=== PATIENT | female | born 1970 | race Caucasian/White ===

== ENCOUNTER → 2018-12-08 11:46 | Outpatient (POV) | payer OTHER, SELFPAY ==
[2018-12-08 12:02] VITALS: BP 149/82; PULSE 77; RESP 18; O2SAT 98
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
== END ==
PROVIDERS: PCP Family Medicine; Visit Provider Clinical Nurse Specialist Family Health
DX: M79.7 Fibromyalgia (principal); M79.18 Myalgia, other site
CPT/HCPCS: 99202

== ENCOUNTER → 2019-01-13 11:33 | Outpatient (POV) | payer OTHER, SELFPAY ==
[2019-01-13 11:48] VITALS: BP 134/84; PULSE 77; RESP 18; O2SAT 98; BMI 20.4
--- NOTE | 2019-01-13 13:34 | HMH.PAINSOAP ---
[facility] Pain Management SOAP Note Subjective:: Is a very pleasant 48-year-old white female who presents today for to discuss her CBGs for her fibromyalgia. She is doing extremely well rating her pain a 2 out of 10 she states her anxiety is better as well. Patient overall doing well with no side effects. Patient understands that she needs to disclose utilizing CBD oil if she has a drug screen. Drug screen will not his positive for THC but however it may test positive for cannabinoids. Patient overall doing well we will follow-up with her in 6 months. ROS General: no recent weight change, no fever, no sleep disturbances Respiratory: no cough, no shortness of air, no recurring pulmonary infections Cardiovascular/Peripheral Vascular: No chest pain, No palpitations, no edema, no shortness of breath. Gastrointestinal: no incontinence, normal bowel movements reported Genitourinary: no incontinence Musculoskeletal: Generalized pain Psychiatric: normal mood/ affect Neurological: [denies weakness in extremities], [denies balance issues] Objective:: Physical Exam General: Alert and oriented x3, no acute distress, pleasant and cooperative, [on room air] Lungs: Resps E/U, Symmetrical chest expansion, [CTA bilateral] Eyes: PERRL Musculoskeletal: Flexion and extension of lumbar spine somewhat guarded secondary to pain, deep tendon reflexes normal, strength in upper and lower extremities [5/5], normal gait noted Neurological: 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 Dr. Ordoñez has reviewed this note and agrees with this plan of care. This note was dictated using voice recognition software and may contain errors or omissions
== END ==
PROVIDERS: PCP Family Medicine; Visit Provider Clinical Nurse Specialist Family Health
DX: M79.7 Fibromyalgia (principal); M60.9 Myositis, unspecified
CPT/HCPCS: 99212